=== PATIENT | female | born 1995 | race Caucasian/White ===

== ENCOUNTER 2017-07-28 19:03 | Emergency (ER) | payer SELFPAY ==
[~2017-07-28] VITALS: Ht 152.4 cm; Wt 57.7 kg
[~2017-07-28 19:03] MED LIST: ALBUTEROL0.09 MG/A1 IH; AMOXICILLIN 8751 TAB PO; AMOXICILLIN875 MG PO; BCP; BIRTH CONTROL; CEFTIN500 MG PO; CELEXA10 MG PO; DEPAKOTE DR500 MG PO; IMPLANON68 MG ID; NORCO 325 MG-51 TAB PO; NORCO 325 MG-7.1 TAB PO; PERCOCET 325 MG1 TA2 PO; PHENERGAN 25 TA25 MG PO; REGLAN 5MG5 MG PO; RITALIN 20M20 MG/TAB PO; SERTRALINE HCL100 MG PO; TRAZODO50 MG PO; TYLENOL W/COD1 UDTAB PO; VYVANSE PO; ZOFRAN 4MG T4 MG/TAB PO; [UNRECOGNIZED DRUG - OTHER]
[2017-07-28 19:05] VITALS: BP 109/66
[2017-07-28] MEDS ORDERED: NORCO 325 MG-51 TAB PO (21:13)
[2017-07-28 22:25] VITALS: PULSE 84; TEMP 98.6
== END 2017-07-28 22:25 | disposition home or self-care (01) ==
LOC: COL.ER 19:03
DX: S06.0X0A Concussion without loss of consciousness, initial encounter (principal); S00.03XA Contusion of scalp, initial encounter; S00.81XA Abrasion of other part of head, initial encounter; F17.210 Nicotine dependence, cigarettes, uncomplicated; Y07.03 Male partner, perpetrator of maltreatment and neglect; Y04.2XXA Assault by strike against or bumped into by another person, initial encounter; Y92.009 Unspecified place in unspecified non-institutional (private) residence as the place of occurrence of the external cause

== ENCOUNTER 2018-02-07 21:33 | Emergency (ER) | payer SELFPAY ==
[~2018-02-07] VITALS: Ht 152.4 cm; Wt 56.8 kg
[2018-02-07 21:37] VITALS: BP 113/80; TEMP 99
[2018-02-07 22:10] LABS: COLLECTION METHOD CLEAN CATCH
[2018-02-07 22:17] LABS: PH 5 (5-8); URINE APPEARANCE Clear; URINE BACTERIA None Seen /hpf; URINE BILIRUBIN Negative (NEGATIVE); URINE BLOOD Negative (NEGATIVE); URINE COLOR Yellow; URINE GLUCOSE Negative (NEGATIVE); URINE KETONE Negative (NEGATIVE); URINE LEUKOCYTE ESTERASE Negative (NEGATIVE); URINE NITRATE Negative (NEGATIVE); URINE PROTEIN(semi-quant) Negative (NEGATIVE); URINE UROBILINOGEN Negative (NEGATIVE)
[2018-02-08 00:54] VITALS: PULSE 80
[2018-02-09] MEDS ORDERED: MACROBID 1100 MG/CAP PO (17:39)
[2018-02-09] MEDS ORDERED: DIFLUCAN150 MG PO (17:39)
== END 2018-02-08 00:54 | disposition home or self-care (01) ==
LOC: COL.ER 21:33
PROVIDERS: Emergency Medicine
DX: R30.0 Dysuria (principal); N89.8 Other specified noninflammatory disorders of vagina; F32.9 Major depressive disorder, single episode, unspecified; F41.9 Anxiety disorder, unspecified; F17.210 Nicotine dependence, cigarettes, uncomplicated
CPT/HCPCS: J0696

== ENCOUNTER 2018-02-09 16:29 | Emergency (ER) | payer SELFPAY ==
[~2018-02-09] VITALS: Ht 152.4 cm; Wt 56.8 kg
[2018-02-09 16:35] VITALS: BP 111/66; TEMP 98
[2018-02-09 17:05] LABS: COLLECTION METHOD CLEAN CATCH
[2018-02-09 17:13] LABS: BUDDING YEAST Present /hpf; MUCOUS Present /lpf; PH 7 (5-8); SQUAMOUS EPITHELIAL 0-2 /hpf; URINE APPEARANCE Cloudy; URINE BACTERIA Rare /hpf; URINE BILIRUBIN Negative (NEGATIVE); URINE BLOOD 1+ (NEGATIVE); URINE COLOR Amber; URINE GLUCOSE Negative (NEGATIVE); URINE KETONE Negative (NEGATIVE); URINE LEUKOCYTE ESTERASE Negative (NEGATIVE); URINE NITRATE Negative (NEGATIVE); URINE PROTEIN(semi-quant) Negative (NEGATIVE); URINE UROBILINOGEN Negative (NEGATIVE)
[2018-02-09] MEDS ORDERED: MACROBID 1100 MG/CAP PO (17:39)
[2018-02-09] MEDS ORDERED: DIFLUCAN150 MG PO (17:39)
[2018-02-09 17:53] VITALS: PULSE 82
== END 2018-02-09 17:53 | disposition home or self-care (01) ==
LOC: COL.ER 16:29
PROVIDERS: Family Medicine
DX: N39.0 Urinary tract infection, site not specified (principal); F17.210 Nicotine dependence, cigarettes, uncomplicated

== ENCOUNTER 2018-12-28 09:06 | Emergency (ER) | payer SELFPAY ==
[~2018-12-28] VITALS: Ht 152.4 cm; Wt 74.1 kg
[~2018-12-28 09:06] MED LIST changes: +DIFLUCAN150 MG PO; +MACROBID 1100 MG/CAP PO
[2018-12-28 09:10] VITALS: BP 120/78; TEMP 98.8
[2018-12-28] MEDS ORDERED: MOTRIN 200200 MG/TAB (09:21)
[2018-12-28 10:45] VITALS: PULSE 86
== END 2018-12-28 10:40 | disposition home or self-care (01) ==
LOC: COL.ER 09:06
DX: K02.9 Dental caries, unspecified (principal); K03.81 Cracked tooth; F32.9 Major depressive disorder, single episode, unspecified; F41.9 Anxiety disorder, unspecified; F17.290 Nicotine dependence, other tobacco product, uncomplicated
CPT/HCPCS: J1885